=== PATIENT | male | born 1995 | race Caucasian/White ===

== ENCOUNTER 2019-09-29 | Emergency (ER) | payer SELFPAY ==
[~2019-09-29] MED LIST: BACTRIM DS1 TAB PO; KEFLEX500 M1 PO
[2019-09-29] MEDS ORDERED: TRAMADOL HCL50 MG PO (18:05)
[2019-09-29] MEDS ORDERED: AMOX/K CLAV875 M1 PO (18:05)
[2019-09-29] MEDS ORDERED: VOLTAREN - GENE75 MG PO (18:05)
== END 2019-09-29 22:40 | disposition home or self-care (01) | DRG 605 ==
DX: S41.152A Open bite of left upper arm, initial encounter (principal); S61.452A Open bite of left hand, initial encounter; W54.0XXA Bitten by dog, initial encounter; Y92.009 Unspecified place in unspecified non-institutional (private) residence as the place of occurrence of the external cause